=== PATIENT | male | born 1945 ===

== ENCOUNTER → 2021-03-18 08:00 | Outpatient (CLI) | payer OTHER ==
[~2021-03-18 08:00] MED LIST: ACUPRIL PO; CELLCEPT500 MG PO; GENGRAF25 MG PO; LABETALOL HCL100 MG PO; LAVENDER FRAGRAN1 ML MC; PREDISONE PO; VITAMIN D310 MCG/1 M PO; XARELTO10 MG PO
== END | disposition home or self-care (01) ==
LOC: ADM 07:00 → LAB 08:00 → EDSTATUS 03-20 07:00 → CIR.AMB 03-20 07:00
PROVIDERS: ATTEND Otolaryngology Otology & Neurotology
DX: D68.8 Other specified coagulation defects (principal); H71.01 Cholesteatoma of attic, right ear; Z03.818 Encounter for observation for suspected exposure to other biological agents ruled out; I10 Essential (primary) hypertension

== ENCOUNTER → 2021-07-31 06:46 | Outpatient (CLI) | payer OTHER | END | disposition home or self-care (01) | LOC: LAB 06:46 | PROVIDERS: ATTEND Anesthesiology | DX: D68.9 Coagulation defect, unspecified (principal) ==

== ENCOUNTER 2021-08-14 06:00 | Day surgery (SDC) | payer OTHER | END 2021-08-14 14:30 | disposition home or self-care (01) | LOC: CIR.AMB 06:00 | PROVIDERS: ATTEND Otolaryngology Otology & Neurotology | DX: H71.01 Cholesteatoma of attic, right ear (principal); H71.21 Cholesteatoma of mastoid, right ear; D68.9 Coagulation defect, unspecified; I48.91 Unspecified atrial fibrillation; I10 Essential (primary) hypertension; Z90.5 Acquired absence of kidney; M19.90 Unspecified osteoarthritis, unspecified site; E66.9 Obesity, unspecified; N18.9 Chronic kidney disease, unspecified ==